=== PATIENT | male | born 1970 | race Hispanic/Latino ===

== ENCOUNTER 2020-06-04 11:30 | Emergency (ER) | payer SELFPAY ==
[~2020-06-04] VITALS: Ht 170.2 cm; Wt 100.0 kg
[~2020-06-04 11:30] MED LIST: CEPHALEXIN500 MG PO; KEFLEX500 MG PO; LORTAB 5/3255 MG PO; PERCOCET 5/321 COMBO PO
[2020-06-04] MEDS ORDERED: CLINDAMYCIN300 M1 PO (11:57)
[2020-06-04] MEDS ORDERED: METFORMIN500 M2 PO (12:04)
[2020-06-04] MEDS ORDERED: BP MED (12:04)
[2020-06-04] MEDS ORDERED: CHOLESTEROL MED (12:05)
[2020-06-04 12:10] VITALS: BP 145/81
== END 2020-06-04 12:10 | disposition home or self-care (01) | DRG 159 ==
LOC: ED 11:30
DX: K08.89 Other specified disorders of teeth and supporting structures (principal); E11.9 Type 2 diabetes mellitus without complications